=== PATIENT | female | born 1945 | race Caucasian/White ===

== ENCOUNTER 2018-10-02 13:06 | Day surgery (SDC) | payer MEDICARE, OTHER ==
[~2018-10-02] VITALS: Ht 165.1 cm; Wt 72.6 kg
--- NOTE | 2018-10-02 13:13 | ED Chest Pain ---
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 Episodes are short. The 2 last PM woke her from her sleep. Todays' occurred while @ rest. Is chest pain free here. Has noted some BARRETT today. No known fever. No N/V, or diaphoresis. 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 ), shortness of breath (c/ exertion today) Allergies and Home Medications Allergies Coded Allergies: No Known Drug Allergies (Unverified , 10/02/18) Patient Home Medication List Home Medication List Reviewed: Yes Review of Systems Review of Systems Constitutional: see HPI Respiratory: See HPI, SOA With Exertion Cardiovascular: See HPI, Chest Pain (episodic) Physical Exam Vital Signs Vital Signs - First Documented 10/02/18 13:14 Temp 97.1 Pulse 56 Resp 21 B/P (MAP) 157/67 (97) Pulse Ox 98 Capillary Refill : Height, Weight, BMI Height: '" Weight: lbs. oz. kg; BMI Method: General Appearance: No Apparent Distress, WD/WN Respiratory: Normal Breath Sounds, No Respiratory Distress Cardiovascular: Regular Rate, Rhythm Rectal: Deferred Neurologic/Psychiatric: Alert, Oriented x3, No Motor/Sensory Deficits, Normal Mood/Affect Skin: Warm/Dry Progress/Results/Core Measures Results/Orders Lab Results Laboratory Tests Test 10/02/18 13:32 Range/Units White Blood Count 6.2 4.3-11.0 10^3/uL Red Blood Count 4.38 4.35-5.85 10^6/uL Hemoglobin 13.1 11.5-16.0 G/DL Hematocrit 40 35-52 % Mean Corpuscular Volume 92 80-99 FL Mean Corpuscular Hemoglobin 30 25-34 PG Mean Corpuscular Hemoglobin Concent 30 L 32-36 G/DL Red Cell Distribution Width 13.2 10.0-14.5 % Platelet Count 214 130-400 10^3/uL Mean Platelet Volume 10.6 H 7.4-10.4 FL Neutrophils (%) (Auto) 61 42-75 % Lymphocytes (%) (Auto) 30 12-44 % Monocytes (%) (Auto) 7 0-12 % Eosinophils (%) (Auto) 2 0-10 % Basophils (%) (Auto) 1 0-10 % Neutrophils # (Auto) 3.8 1.8-7.8 X 10^3 Lymphocytes # (Auto) 1.8 1.0-4.0 X 10^3 Monocytes # (Auto) 0.4 0.0-1.0 X 10^3 Eosinophils # (Auto) 0.1 0.0-0.3 10^3/uL Basophils # (Auto) 0.1 0.0-0.1 10^3/uL Prothrombin Time 14.3 12.2-14.7 SEC INR Comment 1.1 0.8-1.4 Activated Partial Thromboplast Time 28 24-35 SEC Sodium Level 137 135-145 MMOL/L Potassium Level 4.1 3.6-5.0 MMOL/L Chloride Level 98 98-107 MMOL/L Carbon Dioxide Level 20 L 21-32 MMOL/L Anion Gap 19 H 5-14 MMOL/L Blood Urea Nitrogen 34 H 7-18 MG/DL Creatinine 1.29 0.60-1.30 MG/DL Estimat Glomerular Filtration Rate 41 BUN/Creatinine Ratio 26 Glucose Level 96 70-105 MG/DL Calcium Level 10.5 H 8.5-10.1 MG/DL Corrected Calcium 8.5-10.1 MG/DL Magnesium Level 1.8 1.8-2.4 MG/DL Total Bilirubin 0.4 0.1-1.0 MG/DL Aspartate Amino Transf (AST/SGOT) 19 5-34 U/L Alanine Aminotransferase (ALT/SGPT) 14 0-55 U/L Alkaline Phosphatase 83 40-136 U/L Troponin T 17 H <=10 NG/L Pro-B-Type Natriuretic Peptide 179.2 H <75.0 PG/ML Total Protein 7.0 6.4-8.2 GM/DL Albumin 4.6 H 3.2-4.5 GM/DL Lipase 52 8-78 U/L My Orders Orders - GREGORIA FARLEYg Tracing (10/02/18 13:07) Cbc With Automated Diff (10/02/18 13:13) Comprehensive Metabolic Panel (10/02/18 13:13) Troponin T (10/02/18 13:13) Lipase (10/02/18 13:13) Ed Iv/Invasive Line Start (10/02/18 13:13) Probnp Fs (10/02/18 13:13) Chest 1 View Ap/Pa Only (10/02/18 13:15) Magnesium (10/02/18 13:16) Protime With Inr (10/02/18 14:22) Partial Thromboplastin Time (10/02/18 14:22) Aspirin Chewable Tablet (Baby Aspirin Ch (10/02/18 14:30) Clopidogrel Tablet (Plavix Tablet) (10/02/18 14:45) Enoxaparin Injection (Lovenox Injection) (10/02/18 14:45) Medications Given in ED Current Medications Medications Dose Ordered Sig/Danish Route Start Time Stop Time Status Last Admin Dose Admin Aspirin 324 mg ONCE ONCE PO 10/02/18 14:30 10/02/18 14:51 DC 10/02/18 14:27 243 MG Vital Signs/I&O 10/02/18 13:14 Temp 97.1 Pulse 56 Resp 21 B/P (MAP) 157/67 (97) Pulse Ox 98 Progress Progress Note : Progress Note Patient has remained chest pain free the entire time she was in the ED. Discussed her abnormal findings and the need for transfer to a facility c/ Cardiology and she requested [facility]. Initial ECG Impression Date: October 02, 2018 Initial ECG Impression Time: 13:17 Initial ECG Rate: 57 Initial ECG Rhythm: S.Kt Initial ECG Impression: Nonspecific Changes (PAC; Anteroseptal infarct, ? age) Initial ECG Comparisson: No Previous ECG Available Diagnostic Imaging Diagonstic Imaging: Xray Plain Films/CT/US/NM/MRI: chest (NAD) Departure Impression Primary Impression: Chest pain Additional Impressions: Elevated troponin Elevated brain natriuretic peptide (BNP) level Disposition: 02 XFER SHT-TRM HOSP Condition: Stable Transfer Time Spoke to Accepting Phy: 14:39 Transfer Progress Notes Discussed patient initially c/ Dr. Rojas who asked the patient be admitted to the Hospitalist c/ him to consult. Spoke c/ Dr. Rooney @ 14:39 who accepted the patient in transfer. Transfer Facility: [facility] Method of Transfer: EMS GREGORIA FARLEY DO October 02, 2018 13:13
[2018-10-02 13:40] LABS: HEMATOCRIT 40 % (35-52); HEMOGLOBIN 13.1 G/DL (11.5-16.0); MEAN CORPUSCULAR HEMOGLOBIN 30 PG (25-34); MEAN CORPUSCULAR HGB CONC 30 G/DL (32-36); MEAN CORPUSCULAR VOLUME 92 FL (80-99); WHITE BLOOD COUNT 6.2 10^3/uL (4.3-11.0)
[2018-10-02 13:41] LABS: BASOPHILS # (AUTO) 0.1 10^3/uL (0.0-0.1); BASOPHILS % (AUTO) 1 % (0-10); EOSINOPHILS # (AUTO) 0.1 10^3/uL (0.0-0.3); EOSINOPHILS % (AUTO) 2 % (0-10); LYMPHOCYTES # (AUTO) 1.8 X 10^3 (1.0-4.0); LYMPHOCYTES % (AUTO) 30 % (12-44); MEAN PLATELET VOLUME 10.6 FL (7.4-10.4); MONOCYTES # (AUTO) 0.4 X 10^3 (0.0-1.0); MONOCYTES % (AUTO) 7 % (0-12); NEUTROPHILS # (AUTO) 3.8 X 10^3 (1.8-7.8); NEUTROPHILS % (AUTO) 61 % (42-75); PLATELET COUNT 214 10^3/uL (130-400); RED CELL DISTRIBUTION WIDTH 13.2 % (10.0-14.5)
--- NOTE | 2018-10-02 13:44 | Diagnostic Imaging Report ---
INDICATION: Chest pain. TIME OF EXAM: 1:22 p.m. COMPARISON: No prior studies are available for comparison. FINDINGS: The heart size is normal. The pulmonary vascularity is unremarkable. The lungs are clear. No infiltrate, effusion or pneumothorax is detected. IMPRESSION: No acute cardiopulmonary process is detected. Dictated by: Dictated on workstation # [id number]
[2018-10-02 14:11] LABS: CARBON DIOXIDE 20 MMOL/L (21-32); CHLORIDE 98 MMOL/L (98-107); POTASSIUM 4.1 MMOL/L (3.6-5.0); SODIUM 137 MMOL/L (135-145)
[2018-10-02 14:12] LABS: ALANINE AMINOTRANSFERASE 14 U/L (0-55); ALBUMIN 4.6 GM/DL (3.2-4.5); ALKALINE PHOSPHATASE 83 U/L (40-136); BILIRUBIN,TOTAL 0.4 MG/DL (0.1-1.0); BUN/CREATININE RATIO 26; CALCIUM 10.5 MG/DL (8.5-10.1); CREATININE SERUM 1.29 MG/DL (0.60-1.30); GFR ESTIMATED 41; GLUCOSE 96 MG/DL (70-105); LIPASE 52 U/L (8-78); MAGNESIUM 1.8 MG/DL (1.8-2.4)
[2018-10-02] MEDS ORDERED: ASPIRIN 81 MG CHEW (CHILDREN'S ASA) PO ONE (14:30)
[2018-10-02 14:35] LABS: INR 1.1 (0.8-1.4); PROTHROMBIN TIME PATIENT 14.3 SEC (12.2-14.7)
[2018-10-02] MEDS ORDERED: CLOPIDOGREL 300 MG (PLAVIX) TABLET PO ONE (14:45)
[2018-10-02] MEDS ORDERED: ENOXAPARIN 80 MG/0.8 ML (LOVENOX) SYR SC ONE (14:45)
--- NOTE | 2018-10-02 15:53 | NUR ---
Patient transferred to via [facility] via [facility] ems to room cu3
--- NOTE | 2018-10-02 16:41 | NUR ---
DANIEL ERICKSON admitted to room CU3-1, with an admitting diagnosis of Chest pain, on 10/02/18 from [place] via cart, accompanied by staff.DANIEL ERICKSON introduced to surroundings, call light, bed controls, phone, TV, temperature control, lights, meal times, smoking policy, visitor policy, side rail policy, bathrooms and showers. Patient Rights given to patient in the handbook. DANIEL ERICKSON verbalizes understanding that [facility] is not responsible for the loss or damage to any personal effects or valuables that are kept in the patients posession during their hospitalization. The following Patient Care Plans were discussed with the pt: Discharge Planning. DANIEL ERICKSON verbalizes understanding of Interdisciplinary Patient Education. Patient and/or family were informed about the Rapid Response Team and its purpose.
[2018-10-02 17:00] VITALS: BP 151/85
[2018-10-02] MEDS ORDERED: CATHETER FLUSH 10 ML SYR IV PRN (17:15)
--- NOTE | 2018-10-02 17:37 | Consultation-Cardiology ---
HPI-Cardiology Cardiology Consultation: Date of Consultation 10/02/18 Date of Admission Attending Physician Fam Rooney MD Admitting Physician Leonides Cotto DO Consulting Physician Benita ROJAS MD HPI: Time Seen by a Provider: 17:32 Chief Complaint: Chest pain, shortness of breath, fatigue This is a 73-year-old lady who presented to [facility] with 3 episodes of chest pain. The chest pains were sharp, substernal, no radiation, no exacerbating or relieving factors. Moderate intensity. Lasted for a few minutes. Nonreproducible. She also complained of shortness of breath very recently as well as lack of energy and fatigue. She has history of hypertension. She denies diabetes, hyperlipidemia. She denies active smoking. Review of Systems-Cardiology Review of Systems Constitutional: As described under HPI; No As described under HPI, No no symptoms reported, No chills, No fever, No lightheadedness; tiredness Eyes: No As described under HPI, No no symptoms reported, No blindness, No blurred vision, No contact lenses, No drainage, No decreased acuity, No foreign body sensation, No pain, No vision change Ears/Nose/Throat: No As described under HPI, No no symptoms reported, No chronic hearing loss, No ear discharge, No ear pain, No nasal drainage, No ulcerations Respiratory: No no symptoms reported; As described under HPI; No As described under HPI, No cough, No orthopnea; shortness of breath; No SOB with excertion Cardiovascular: No no symptoms reported; As described under HPI; No As described under HPI; chest pain; No edema, No irregular heart rate, No lightheadedness, No palpitations Gastrointestinal: No no symptoms reported, No As described under HPI, No abdomen distended, No abdominal pain, No blood streaked bowels, No constipation , No diarrhea, No nausea, No vomiting, No stool coloration changes Genitourinary: No As described under HPI, No burning, No dysuria, No discharge , No frequency, No flank pain, No hematuria, No urgency : Yes : No Skin: No rash, No skin related problems, No ulcerations Psychiatric/Neurological: No anxiety, No depression, No seizure, No focal weakness, No syncope Hematologic: No bleeding abnormalities [id number] Hx Patient Social History Alcohol Use: Denies Use Recreational Drug Use: No Smoking Status: Never a Smoker 2nd Hand Smoke Exposure: No Recent Foreign Travel: No Recent Infectious Disease Expo: No Past Medical History PMH As described under Assessment. Allergies and Home Medications Allergies Coded Allergies: No Known Drug Allergies (Unverified , 10/02/18) Patient Home Medication List Home Medication List Reviewed: Yes Physical Exam-Cardiology Physical Exam Vital Signs/I&O 10/03/18 10/03/18 10/03/18 10/03/18 01:00 04:00 07:00 07:45 Temp 97.6 Pulse 50 50 50 54 Resp 18 18 B/P (MAP) 178/80 (112) 165/86 (112) Pulse Ox 96 96 O2 Delivery Room Air Room Air 10/03/18 10/03/18 08:08 11:27 Temp 99.2 Pulse 55 Resp 20 B/P (MAP) 158/69 (98) Pulse Ox 97 O2 Delivery Room Air Room Air 10/03/18 00:00 Intake Total 400 ml Balance 400 ml Capillary Refill : Less Than 3 Seconds Constitutional: appears stated age, AAO x 3; No apparent distress; well- developed, well-nourished HEENT: PERRL; No normal ENT inspection, No TMs normal, No pharynx normal, No scleral icterus (R), No scleral icterus (L), No pale conjunctivae (R), No pale conjunctivae (L), No photophobia, No TM abnormal (R), No TM abnormal (L), No pharyngeal erythema, No tonsillar exudate, No other, No discharge, No EOMI; hearing is well preserved; No hard of hearing; oral hygience is good; No ulceration, No xanthelasmas are seen Neck: No non-tender, No full range of motion, No supple, No normal inspection, No carotid bruit, No limited range of motion, No lymphadenopathy (R), No lymphadenopathy (L), No tender lateral, No tender midline, No thyromegaly, No other; carotid pulses are 2 + bilaterally; No with good upstrokes Respiratory: No accessory muscle use, No respiratory distress, No chest tender , No chest expansion is symmetric; chest is bilaterally symmetric; No lungs clear to percussion; lungs clear to auscultation; No crackles, No rhonchi, No rales, No stridor, No wheezing, No pleural rub, No other Cardiovascular: regular rate-rhythm; No irregularly irregular, No extra beats, No parasternal heave is noted, No JVD, No edema, No bradycardia, No tachycardia , No point of maximal impulse, No cardiac thrills are palpable; S1 and S2; No gallop/S3, No gallop/S4, No diastolic murmur, No systolic murmur, No friction rub, No click, No other Gastrointestinal: No tender, No soft, No round, No distended, No pulsatile mass , No organomegaly, No guarding, No rebound, No tenderness, No hernia, No mass, No audible bowel sounds, No abnormal bowel sounds, No abdominal bruits, No spleenomegaly, No other Rectal: deferred Extremities: No normal range of motion, No non-tender, No normal inspection, No pedal edema, No calf tenderness, No normal capillary refill, No pelvis stable , No calf tenderness, No inflammation, No pedal edema, No slow capillary refill , No swelling, No other, No abrasion, No clubbing, No cyanosis, No ecchymosis, No laceration, No no lower extremity edema bilateral, No significant edema, No tenderness, No wound Neurologic/Psychiatric: no motor/sensory deficits, alert, normal mood/affect, oriented x 3, power is 5/5 both on sides Skin: No normal color, No warm/dry, No cyanosis, No cool, No diaphoresis, No damp, No ecchymosis, No jaundice, No mottled, No pallor, No rash, No tattoos/ piercings, No ulcerations, No rash on exposed areas, No ulcerations on exposed areas, No other Data Review Labs Laboratory Tests 10/02/18 13:32: White Blood Count 6.2, Red Blood Count 4.38, Hemoglobin 13.1, Hematocrit 40, Mean Corpuscular Volume 92, Mean Corpuscular Hemoglobin 30, Mean Corpuscular Hemoglobin Concent 30L, Red Cell Distribution Width 13.2, Platelet Count 214, Mean Platelet Volume 10.6H, Neutrophils (%) (Auto) 61, Lymphocytes (%) (Auto) 30 , Monocytes (%) (Auto) 7, Eosinophils (%) (Auto) 2, Basophils (%) (Auto) 1, Neutrophils # (Auto) 3.8, Lymphocytes # (Auto) 1.8, Monocytes # (Auto) 0.4, Eosinophils # (Auto) 0.1, Basophils # (Auto) 0.1, Prothrombin Time 14.3, INR Comment 1.1, Activated Partial Thromboplast Time 28, Sodium Level 137, Potassium Level 4.1, Chloride Level 98, Carbon Dioxide Level 20L, Anion Gap 19H , Blood Urea Nitrogen 34H, Creatinine 1.29, Estimat Glomerular Filtration Rate 41, BUN/Creatinine Ratio 26, Glucose Level 96, Calcium Level 10.5H, Corrected Calcium , Magnesium Level 1.8, Total Bilirubin 0.4, Aspartate Amino Transf (AST/ SGOT) 19, Alanine Aminotransferase (ALT/SGPT) 14, Alkaline Phosphatase 83, Troponin T 17H, Pro-B-Type Natriuretic Peptide 179.2H, Total Protein 7.0, Albumin 4.6H, Lipase 52 10/02/18 15:14: Troponin T 13H 10/02/18 17:57: Erythrocyte Sedimentation Rate 6, Troponin I < 0.028, C-Reactive Protein High Sensitivity 0.36, B-Type Natriuretic Peptide 93.7 10/03/18 03:09: White Blood Count 3.9L, Red Blood Count 4.13L, Hemoglobin 12.3, Hematocrit 37, Mean Corpuscular Volume 90, Mean Corpuscular Hemoglobin 30, Mean Corpuscular Hemoglobin Concent 33, Red Cell Distribution Width 13.5, Platelet Count 194, Mean Platelet Volume 10.5H, Neutrophils (%) (Auto) 43, Lymphocytes (%) (Auto) 40 , Monocytes (%) (Auto) 11, Eosinophils (%) (Auto) 5, Basophils (%) (Auto) 1, Neutrophils # (Auto) 1.7L, Lymphocytes # (Auto) 1.6, Monocytes # (Auto) 0.4, Eosinophils # (Auto) 0.2, Basophils # (Auto) 0.0, Sodium Level 138, Potassium Level 3.6, Chloride Level 109H, Carbon Dioxide Level 20L, Anion Gap 9, Blood Urea Nitrogen 24H, Creatinine 0.88, Estimat Glomerular Filtration Rate > 60, BUN /Creatinine Ratio 27, Glucose Level 78, Calcium Level 9.5, Troponin I < 0.028, Thyroid Stimulating Hormone (TSH) 4.50 ECG Impression ECG Comment Q waves in the anterior septal leads suggest possible previous infarct. A/P-Cardiology Assessment/Admission Diagnosis Recurrent chest pain, borderline positive troponin, Shortness of breath, Fatigue, Hypertension, Abnormal EKG Plan 2 sets of troponin T from [place] ER are borderline positive. We will run 2 sets of troponin I. We'll also request a BNP, CRP and ESR. Echocardiogram in the morning. It is likely that we may proceed with coronary angiography considering all the information at hand. Informed consent was taken from the patient. Shortness of breath, no florid congestive heart failure. Mildly positive pro BNP. Will recommend an echocardiogram. Fatigue, no clear evidence of etiology. Hypertension, EKG demonstrates possible Q waves in the anteroseptal leads, possible old infarct. Thank you for your consultation. Please call me if you have any questions. Jeff Rojas MD, FACP, FACC, FSCAI, FHRS, CCDS Interventional Cardiology Cardiac Electrophysiology Vascular Medicine and Endovascular Interventions Clinical Quality Measures AMI/AHF: ASA po Prior to arrival: Yes (81 mg) Benita ROJAS MD October 02, 2018 17:37
[2018-10-02 18:00] VITALS: BP 151/85
[2018-10-02] MEDS: NS IV 1000 ML 1,000 ML IV SCH (19:04)
[2018-10-03] VITALS (12 sets, daily range): BP systolic 128–178; BP diastolic 59–86
[2018-10-03 03:24] LABS: BASOPHILS % (AUTO) 1 % (0-10); EOSINOPHILS # (AUTO) 0.2 10^3/uL (0.0-0.3); EOSINOPHILS % (AUTO) 5 % (0-10); HEMATOCRIT 37 % (35-52); HEMOGLOBIN 12.3 G/DL (11.5-16.0); LYMPHOCYTES # (AUTO) 1.6 X 10^3 (1.0-4.0); LYMPHOCYTES % (AUTO) 40 % (12-44); MEAN CORPUSCULAR HEMOGLOBIN 30 PG (25-34); MEAN CORPUSCULAR HGB CONC 33 G/DL (32-36); MEAN CORPUSCULAR VOLUME 90 FL (80-99); MEAN PLATELET VOLUME 10.5 FL (7.4-10.4); MONOCYTES # (AUTO) 0.4 X 10^3 (0.0-1.0); MONOCYTES % (AUTO) 11 % (0-12); NEUTROPHILS # (AUTO) 1.7 X 10^3 (1.8-7.8); NEUTROPHILS % (AUTO) 43 % (42-75); PLATELET COUNT 194 10^3/uL (130-400); RED CELL DISTRIBUTION WIDTH 13.5 % (10.0-14.5); WHITE BLOOD COUNT 3.9 10^3/uL (4.3-11.0)
[2018-10-03 03:42] LABS: BUN/CREATININE RATIO 27; CALCIUM 9.5 MG/DL (8.5-10.1); CARBON DIOXIDE 20 MMOL/L (21-32); CHLORIDE 109 MMOL/L (98-107); CREATININE SERUM 0.88 MG/DL (0.60-1.30); GFR ESTIMATED > 60; GLUCOSE 78 MG/DL (70-105); POTASSIUM 3.6 MMOL/L (3.6-5.0); SODIUM 138 MMOL/L (135-145)
[2018-10-03] MEDS: NS IV 1000 ML 1,000 ML IV SCH (08:05)
--- NOTE | 2018-10-03 11:41 | History & Physical-Hospitalist ---
History of Present Illness HPI/Chief Complaint Patient reports she was awoken from sleep around 2 a.m. Friday morning it was sharp and stabbing and lasted 1-2 minutes. She was able to go back to sleep. She reported another episode of chest pain that made her feel weak also sharp stabbing in the center of her chest that did not radiate. This was Friday morning. After that she attempted to carry her small dog and felt quite fatigued and short of breath. She did not pass out and denied diaphoresis. Because of the associated weakness she presented to the [facility] emergency room where she had some nonspecific EKG changes and he less specific troponin but they run their was weakly positive it was repeated several hours later and unchanged. Over concerns for acute coronary syndrome she was transferred to our facility for admission cardiovascular evaluation. [place] is usually quite active. She's felt a little more fatigued over the past several months. With this she has had knee pain and read that being overweight could aggravate arthritis. She been unable to lose weight on her own over this period of time and recently started a metal fast type low carbohydrate plan and had lost 7 pounds over the last 10 days. She has no past history for cardiovascular disease and no significant risk factors for coronary artery disease other than the fact that she was once told her cholesterol level was mildly elevated but does not know any of her numbers. There is no reported family history for coronary artery disease and she does not drink or smoke. Date Seen 10/03/18 Time Seen by a Provider: 07:30 Attending Physician Fam Leung MD PCP Leonides Cotto DO Referring Physician Date of Admission October 02, 2018 at 15:04 Home Medications & Allergies Home Medications Reviewed patient Home Medication Reconciliation performed by pharmacy medication reconciliations materials technician and/or nursing. Patients Allergies have been reviewed. Allergies Allergies Coded Allergies No Known Drug Allergies (Unverified10/02/18) Past [id number]-[id number] Hx Past Med/Social Hx: Reviewed and Corrections made Patient Social History Alcohol Use: Denies Use Recreational Drug Use: No Smoking Status: Never a Smoker 2nd Hand Smoke Exposure: No Physical Abuse Screen: No Sexual Abuse: No Recent Foreign Travel: No Contact w/other who traveled: No Recent Hopitalizations: No Recent Infectious Disease Expo: No Seasonal Allergies Seasonal Allergies: No Past Medical History Surgeries: Appendectomy Cardiac: Hypertension Musculoskeletal: Arthritis Cancer: Cervical History of Blood Disorders: No Adverse Reaction to Blood Elliott: No Review of Systems Constitutional: see HPI; No chills, No diaphoresis, No dizziness, No fever, No malaise, No weakness, No weight gain, No weight loss, No other Respiratory: No no symptoms reported; see HPI; No cough; dyspnea on exertion ( Pulmonary reported yesterday); No hemoptysis, No orthopnea, No phlegm, No short of breath, No stridor, No wheezing Cardiovascular: No no symptoms reported; see HPI, chest pain; No edema, No Hx of Intervention, No palpitations, No syncope, No vascular heart diseas, No other Gastrointestinal: see HPI Physical Exam Physical Exam Vital Signs Vital Signs - First Documented 10/02/18 10/02/18 13:14 17:00 Temp 97.1 Pulse 56 Resp 21 B/P (MAP) 157/67 (97) Pulse Ox 98 O2 Delivery Room Air Capillary Refill : Less Than 3 Seconds Height, Weight, BMI Height: 5'5.00" Weight: 160lbs. 2.0oz. [id number]; 26.1 BMI Method:Stated General Appearance: No Apparent Distress, WD/WN HEENT: PERRL/EOMI, Normal ENT Inspection, Pharynx Normal, Moist Mucous Membranes Neck: Full Range of Motion, Normal Inspection, Non Tender Respiratory: Chest Non Tender, Lungs Clear, Normal Breath Sounds, No Accessory Muscle Use, No Respiratory Distress Cardiovascular: Regular Rate, Rhythm, No Edema, No Gallop, No JVD, No Murmur, Normal Peripheral Pulses Gastrointestinal: Normal Bowel Sounds, No Organomegaly, No Pulsatile Mass, Non Tender, Soft Back: Normal Inspection, No CVA Tenderness, No Vertebral Tenderness Extremity: Normal Capillary Refill, Normal Inspection, Normal Range of Motion, Non Tender, No Calf Tenderness, No Pedal Edema Neurologic/Psychiatric: Alert, Oriented x3, No Motor/Sensory Deficits, Normal Mood/Affect Lymphatic: No Adenopathy Results Results/Procedures Labs Laboratory Tests 10/02/18 13:32 10/03/18 03:09 Patient resulted labs reviewed. Assessment/Plan Admission Diagnosis A/P 1. Chest pain atypical for acute coronary syndrome with repeat troponin I levels normal on admission as well as 4 hours later will defer to cardiology continuing current medications. EKG also reveals nonspecific change. Echocardiography has been ordered and pending at the time of this dictation. Sitter reports of fatigue with an unremarkable CBC sedimentation rate and CMP will obtain a TSH level. Admission Status: Observation Clinical Quality Measures AMI/AHF: ASA po Prior to arrival: Yes (81 mg) DVT/VTE Risk/Contraindication: Risk Factor Score Per Nursin RFS Level Per Nursing on Admit: 2=Moderate FAM LEUNG MD October 03, 2018 11:41
[2018-10-03] MEDS ORDERED: HEParin (CATH LAB) 2,000 ML IV ONE (11:48)
[2018-10-03] MEDS ORDERED: LIDOCAINE 1% INJ 20 ML 20 ML VIAL ONE (11:48)
[2018-10-03] MEDS ORDERED: MIDAZOLAM 5 MG/5 ML (VERSED) VIAL ONE (12:02)
[2018-10-03] MEDS ORDERED: NS IV 1000 ML 1,000 ML ONE (12:02)
[2018-10-03] MEDS ORDERED: fentaNYL INJECTION 100 MCG/2 ML AMP ONE (12:02)
--- NOTE | 2018-10-03 12:41 | Cardiology Progress Note ---
Cardiology SOAP Progress Note Subjective: No further chest pain. Objective: I&O/Vital Signs 10/03/18 10/03/18 10/03/18 10/03/18 01:00 04:00 07:00 07:45 Temp 97.6 Pulse 50 50 50 54 Resp 18 18 B/P (MAP) 178/80 (112) 165/86 (112) Pulse Ox 96 96 O2 Delivery Room Air Room Air 10/03/18 10/03/18 08:08 11:27 Temp 99.2 Pulse 55 Resp 20 B/P (MAP) 158/69 (98) Pulse Ox 97 O2 Delivery Room Air Room Air 10/03/18 00:00 Intake Total 400 ml Balance 400 ml Weight (Pounds): 160 Weight (Ounces): 2.0 Weight (Calculated Kilograms): 72.724295 Constitutional: appears stated age, AAO x 3; No apparent distress; well- developed, well-nourished Respiratory: No accessory muscle use, No respiratory distress, No chest tender , No chest expansion is symmetric; chest is bilaterally symmetric; No lungs clear to percussion; lungs clear to auscultation; No crackles, No rhonchi, No rales, No stridor, No wheezing, No pleural rub, No other Cardiovascular: regular rate-rhythm; No irregularly irregular, No extra beats, No parasternal heave is noted, No JVD, No edema, No bradycardia, No tachycardia , No point of maximal impulse, No cardiac thrills are palpable; S1 and S2; No gallop/S3, No gallop/S4, No diastolic murmur, No systolic murmur, No friction rub, No click, No other Gastrointestional: No tender, No soft, No round, No distended, No pulsatile mass, No organomegaly, No guarding, No rebound, No tenderness, No hernia, No mass, No audible bowel sounds, No abnormal bowel sounds, No abdominal bruits, No spleenomegaly, No other Extremities: No normal range of motion, No non-tender, No normal inspection, No pedal edema, No calf tenderness, No normal capillary refill, No pelvis stable , No calf tenderness, No inflammation, No pedal edema, No slow capillary refill , No swelling, No other, No abrasion, No clubbing, No cyanosis, No ecchymosis, No laceration, No no lower extremity edema bilateral, No significant edema, No tenderness, No wound Neurologic/Psychiatric: no motor/sensory deficits, alert, normal mood/affect, oriented x 3, power is 5/5 both on sides Skin: No normal color, No warm/dry, No cyanosis, No cool, No diaphoresis, No damp, No ecchymosis, No jaundice, No mottled, No pallor, No rash, No tattoos/ piercings, No ulcerations, No rash on exposed areas, No ulcerations on exposed areas, No other Results/Procedures: Labs Laboratory Tests 10/02/18 13:32: White Blood Count 6.2, Red Blood Count 4.38, Hemoglobin 13.1, Hematocrit 40, Mean Corpuscular Volume 92, Mean Corpuscular Hemoglobin 30, Mean Corpuscular Hemoglobin Concent 30L, Red Cell Distribution Width 13.2, Platelet Count 214, Mean Platelet Volume 10.6H, Neutrophils (%) (Auto) 61, Lymphocytes (%) (Auto) 30 , Monocytes (%) (Auto) 7, Eosinophils (%) (Auto) 2, Basophils (%) (Auto) 1, Neutrophils # (Auto) 3.8, Lymphocytes # (Auto) 1.8, Monocytes # (Auto) 0.4, Eosinophils # (Auto) 0.1, Basophils # (Auto) 0.1, Prothrombin Time 14.3, INR Comment 1.1, Activated Partial Thromboplast Time 28, Sodium Level 137, Potassium Level 4.1, Chloride Level 98, Carbon Dioxide Level 20L, Anion Gap 19H , Blood Urea Nitrogen 34H, Creatinine 1.29, Estimat Glomerular Filtration Rate 41, BUN/Creatinine Ratio 26, Glucose Level 96, Calcium Level 10.5H, Corrected Calcium , Magnesium Level 1.8, Total Bilirubin 0.4, Aspartate Amino Transf (AST/ SGOT) 19, Alanine Aminotransferase (ALT/SGPT) 14, Alkaline Phosphatase 83, Troponin T 17H, Pro-B-Type Natriuretic Peptide 179.2H, Total Protein 7.0, Albumin 4.6H, Lipase 52 10/02/18 15:14: Troponin T 13H 10/02/18 17:57: Erythrocyte Sedimentation Rate 6, Troponin I < 0.028, C-Reactive Protein High Sensitivity 0.36, B-Type Natriuretic Peptide 93.7 10/03/18 03:09: White Blood Count 3.9L, Red Blood Count 4.13L, Hemoglobin 12.3, Hematocrit 37, Mean Corpuscular Volume 90, Mean Corpuscular Hemoglobin 30, Mean Corpuscular Hemoglobin Concent 33, Red Cell Distribution Width 13.5, Platelet Count 194, Mean Platelet Volume 10.5H, Neutrophils (%) (Auto) 43, Lymphocytes (%) (Auto) 40 , Monocytes (%) (Auto) 11, Eosinophils (%) (Auto) 5, Basophils (%) (Auto) 1, Neutrophils # (Auto) 1.7L, Lymphocytes # (Auto) 1.6, Monocytes # (Auto) 0.4, Eosinophils # (Auto) 0.2, Basophils # (Auto) 0.0, Sodium Level 138, Potassium Level 3.6, Chloride Level 109H, Carbon Dioxide Level 20L, Anion Gap 9, Blood Urea Nitrogen 24H, Creatinine 0.88, Estimat Glomerular Filtration Rate > 60, BUN /Creatinine Ratio 27, Glucose Level 78, Calcium Level 9.5, Troponin I < 0.028, Thyroid Stimulating Hormone (TSH) 4.50 A/P: Assessment/Dx: Recurrent chest pain, borderline positive troponin, Shortness of breath, Fatigue, Hypertension, Abnormal EKG Plan: 2 sets of troponin T from [facility] are borderline positive. Negative serial troponin. We'll also request a BNP, CRP and ESR. Echocardiogram in the morning. Coronary angiography today. Shortness of breath, no florid congestive heart failure. Mildly positive pro BNP. Will recommend an echocardiogram. Fatigue, no clear evidence of etiology. Hypertension, EKG demonstrates Q waves in the anteroseptal leads, possible old infarct. Thank you for your consultation. Please call me if you have any questions. Jeff Rojas MD, FACP, FACC, FSCAI, FHRS, CCDS Interventional Cardiology Cardiac Electrophysiology Vascular Medicine and Endovascular Interventions Clinical Quality Measures AMI/AHF: ASA po Prior to arrival: Yes (81 mg) Benita ROJAS MD October 03, 2018 12:41
[2018-10-03] MEDS ORDERED: NS IV 1000 ML 1,000 ML IV SCH (12:43)
--- NOTE | 2018-10-03 12:43 | Coronary Angiography Report ---
Coronary Angiography Report DATE OF PROCEDURE: 10/03/18 INDICATION: Recurrent chest pain, borderline positive troponin, abnormal EKG. PREOPERATIVE DIAGNOSIS: Recurrent chest pain, borderline positive troponin, abnormal EKG. POSTOPERATIVE DIAGNOSIS: Mild CAD. HISTORY: This is a 73-year-old lady who presented with sharp chest pain, shortness of breath and fatigue with possible Q waves in the anterior septal leads. Borderline positive troponin T in [facility]. Therefore, the patient was scheduled for coronary angiography. PROCEDURES PERFORMED: 1.Coronary angiography. 2.Left heart catheterization. 3. Aortic root injection; medical necessity, to evaluate ostium of the RCA. 4. Aortic arch angiogram; medical necessity, sharp chest pain in a patient with no significant CAD, rule out aortic aneurysm/dissection. 5. Abdominal aortogram and bilateral lower extremity runoff; medical necessity , resistance to the wire in the right common iliac artery. COMPLICATIONS: None. SPECIMENS: None. ESTIMATED BLOOD LOSS: 10 mL ANESTHESIA: Conscious sedation ANTICOAGULATION: None. CONTRAST: 97 mL. FLUOROSCOPY: 4.3 minutes. FLOUROSCOPY DOSE: 192 MGY. PROCEDURE DETAILS: The patient is a 73 female and was brought to the [employer] lab[facility] after informed consent was taken. All the risks and complications were explained in detail; this included the risk of bleeding, vascular damage, stroke , ID and even . The patient was draped and prepped in the usual sterile fashion. John's test was abnormal therefore access was gained in the right femoral artery with a 6 Yemeni sheath. Coronary angiography was performed with a JR4 and JL4 catheter. Aortic arch angiogram was performed with a JR4 catheter. Abdominal aortogram and bilateral lower extremity runoff was performed with a pigtail catheter. FINDINGS: 1.Left main: Patent. 2.LAD: Mild mid disease. 3.Left circumflex artery: Patent. 4.RCA: Patent. 5.Left heart catheterization: LV pressure 135/-4 mmHg. LVEDP 5 mmHg. Aortic pressure 125/53 mmHg. Normal LV function with no wall motion abnormalities. No gradient across the aortic valve. 6. Aortic root injection was done to assess the ostium of the RCA. No significant aortic root dilatation. 7. Aortic arch angiogram was done in a patient with sharp chest pain and no significant CAD. No evidence of ascending thoracic aorta aneurysm or dissection. Patent proximal segments of the great arteries including brachycephalic artery, common carotid artery and left subclavian. CONCLUSIONS: Mild CAD. Continue management of risk factors including hypertension. Jeff Rojas MD, FACP, FACC, [facility] Interventional Cardiology Benita ROJAS MD October 03, 2018 12:43
--- NOTE | 2018-10-03 12:43 | Cardiac Procedure Note-CS/ASA ---
Pre-Procedure Note Pre-Op Procedure Note H&P Reviewed The H&P was reviewed, patient examined and no changes noted. Date H&P Reviewed: October 03, 2018 Time H&P Reviewed: 11:00 Conscious Sedation Pre-Proced Time 11:00 ASA Score 3 For ASA 3 and 4: Consider anesthesia and medical clearance. Also, for patients with a history of failed moderate sedation consider anesthesia. Airway Lungs Heart ASA score ASA 1: a normal healthy patient ASA 2: a patient with a mild systemic disease (mid diabetes, controlled hypertension, obesity ASA 3: a patient with a severe systemic disease that limits activity (angina , COPD, prior Myocardial infarction) ASA 4: a patient with an incapacitating disease that is a constant threat to life (CHF, renal failure) ASA 5: a moribund patient not expected to survive 24 hrs. (ruptured aneurysm) ASA 6: a declared brain- patient whose organs are being harvested. For emergent operations, add the letter E after the classification Mallampati Classification Grade 1 Sedation Plan Analgesia, Amnesia, Plan communicated to team members, Discussed options with patient/fam, Discussed risks with patient/fam The patient is an appropriate candidate to undergo the planned procedure, sedation, and anesthesia. The patient immediately re-assessed prior to indication. Benita HINDS MD October 03, 2018 12:43
[2018-10-03] MEDS ORDERED: PATIENT MAY USE OWN MEDS, ALL PO SCH (12:45)
== END 2018-10-03 17:45 | disposition home or self-care (01) ==
LOC: ER FS 13:09 → ICU 15:04 → UNDOADMOB 15:04 → ICU 16:41 → CATH 16:41 → UNDODISOB 10-03 17:45 → CATH 10-03 17:45
PROVIDERS: ATTEND Internal Medicine
DX: I25.10 Atherosclerotic heart disease of native coronary artery without angina pectoris (principal); I10 Essential (primary) hypertension; R79.89 Other specified abnormal findings of blood chemistry; R53.83 Other fatigue; R06.02 Shortness of breath; R94.31 Abnormal electrocardiogram [ECG] [EKG]
CPT/HCPCS: 36221; 36415; 71045; 80048; 80053; 83690; 83735; 83880; 84443; 84484; 85025; 85610; 85652; 85730; 86141; 93005; 93306; 93458; 93567; 96372

== ENCOUNTER 2018-10-09 08:24 | Emergency (ER) | payer MEDICARE ==
[~2018-10-09] VITALS: Ht 165.1 cm; Wt 71.2 kg
--- NOTE | 2018-10-09 09:05 | ED General ---
General Chief Complaint: General Problems/Pain Stated Complaint: WOUND CHECK Nursing Triage Note: Pt arrived by private vehicle for chief complaint of swelling at insertion site where her heart cath was done on Friday by Dr. Rojas. On her card it stated if there is increased swelling to get it looked at. Pt stated heart cath showed that everything was normal she stated. Pt was alert, oriented and ambulatory at arrival. Pt denies pain, maybe just a little she stated. Only other past medical history is high blood pressure, cervical cancer, parital hyster and appendectomy. Nursing Sepsis Screen: No Definite Risk Source of Information: Patient History of Present Illness Date Seen by Provider: October 09, 2018 Time Seen by Provider: 09:05 Initial Comments 73 yo F presenting to the ED with complaints of right groin and upper thigh pain and bruising since heart cath a week ago. She was concerned about the amount of swelling and having a hard knot in the groin area of the bruised part where they went in for the cath. She has mild pain to it as well. She has tried applying a hot pack made with corn packed in a tube. She feels that helped some. She has no numbness or tingling to the area. She thinks it is getting bigger on her. Allergies and Home Medications Allergies Coded Allergies: No Known Drug Allergies (Unverified , 10/02/18) Home Medications No Active Prescriptions or Reported Meds Patient Home Medication List Home Medication List Reviewed: Yes Review of Systems Review of Systems Constitutional: No chills, No fever EENTM: no symptoms reported Respiratory: no symptoms reported Cardiovascular: no symptoms reported Gastrointestinal: no symptoms reported Genitourinary: no symptoms reported Musculoskeletal: see HPI Skin: see HPI Psychiatric/Neurological: No Symptoms Reported Hematologic/Lymphatic: Other (bruising to right groing and upper thigh since alvarez ving heart cath) Past Gbksvcx-Wdyeer-Ixrqmw Hx Past Med/Social Hx: Reviewed Nursing Past Med/Soc Hx Patient Social History Alcohol Use: Denies Use Recreational Drug Use: No Smoking Status: Never a Smoker 2nd Hand Smoke Exposure: No Recent Foreign Travel: No Contact w/Someone Who Travel: No Recent Infectious Disease Expo: No Recent Hopitalizations: No Physical Abuse: No Sexual Abuse: No Mistreated: No Fear: No Seasonal Allergies Seasonal Allergies: No Past Medical History Surgeries: Yes ("Partial hysterectomy") Appendectomy, Cardiac, Hysterectomy Respiratory: No Cardiac: Yes Hypertension Neurological: No CARDIAC REHAB NURSE History: Hysterectomy Genitourinary: No Musculoskeletal: Yes Arthritis Endocrine: No HEENT: No Cancer: Yes Cervical Psychosocial: No Integumentary: No Blood Disorders: No Adverse Reaction/Blood Tranf: No Physical Exam Vital Signs Vital Signs - First Documented 10/09/18 08:35 Temp 97.6 Pulse 57 Resp 20 B/P (MAP) 167/69 (101) Pulse Ox 98 O2 Delivery Room Air Capillary Refill : Less Than 3 Seconds Height, Weight, BMI Height: 5'5.00" Weight: 157lbs. 0oz. 71.703169hn; 26.1 BMI Method:Stated General Appearance: No Apparent Distress, WD/WN HEENT: Normal ENT Inspection, Pharynx Normal Respiratory: Chest Non Tender, Lungs Clear, Normal Breath Sounds Cardiovascular: Regular Rate, Rhythm, Normal Peripheral Pulses Extremity: Normal Capillary Refill, Normal Range of Motion, No Calf Tenderness, No Pedal Edema, Other (swelling and bruising to right groin with a firm knot by her inguinal area. she has palpable femoral pulse. no definite bruit or thrill for pseudoaneurysm. mild pain with palpation. bruising and swelling extends down onto her medial thigh ) Neurologic/Psychiatric: Alert, Oriented x3, No Motor/Sensory Deficits, Normal Mood/Affect, affiliate marketing manager II-XII Norm as Tested Skin: Warm/Dry, Ecchymosis (right thigh) Progress/Results/Core Measures Suspected Sepsis Recent Fever Within 48 Hours: No Infection Criteria Present: None New/Unexplained Altered Menta: No Sepsis Screen: No Definite Risk SIRS Temperature:97.6 Pulse: 57 Respiratory Rate: 20 Blood Pressure 167 /69 Mean: 101 Results/Orders My Orders Orders - BONI SALCEDO MD Us Right Low Ext [id number] (10/09/18 09:14) Vital Signs/I&O Capillary Refill : Less Than 3 Seconds Blood Pressure Mean: 101 Progress Note #1: Progress Note ultrasound of the groin/thigh to evaluate for possible pseudoaneurysm. Progress Note #2: Progress Note No pseudoaneurysm seen on ultrasound. treat symptomatically for bruise and hematoma. counseled on follow up and return precautions Diagnostic Imaging Diagonstic Imaging: Ultrasound Plain Films/CT/US/NM/MRI: leg Comments NAME: DANIEL ERICKSON [facility] REC#: [id number] PT STATUS: DEP ER : 1945 PHYSICIAN: BONI SALCEDO MD ADMIT DATE: 10/09/18/ER FS Signed Date of Exam:10/09/18 RIGHT LOW EXT [id number] INDICATION: Heart catheterization on 10/03/2018. Patient has right groin swelling. Grayscale, color-flow and duplex Doppler evaluation of the right lower extremity was performed. There is a complex fluid collection in the right groin consistent with a hematoma. This measures 4.8 x 2.0 x 5.5 cm. No internal vascularity is seen to suggest pseudoaneurysm. Predominantly biphasic waveforms in the right lower extremity arterial system is seen. Velocities are unremarkable. No high-grade stenosis or occlusion is seen. IMPRESSION: Right groin hematoma. No pseudoaneurysm is detected. Dictated by: Dictated on workstation # [id number] Dict: 10/09/18 1013 Trans: 10/09/18 1523 [facility] [id number] Interpreted by: JULIA AQUINO MD Electronically signed by: JULIA AQUINO MD 10/09/18 1523 Departure Impression Primary Impression: Traumatic hematoma of groin Qualified Codes: S30.1XXA - Contusion of abdominal wall, initial encounter Additional Impression: Postprocedural hematoma of a circulatory system organ or structure following a cardiac catheterization Disposition: 01 HOME, SELF-CARE Condition: Stable Departure-Patient Inst. Decision time for Depature: 10:59 Referrals: MARYANN CARSON DO (PCP/Family) Primary Care Physician Patient Instructions: HEMATOMA Add. Discharge Instructions: Continue with applying heat to the bruise and hematoma on your thigh and groin for 15-20 minutes every few hours as needed to help with healing and getting your body to reabsorb the hematoma. Check with clinic for continued concerns All discharge instructions reviewed with patient and/or family. Voiced understanding. Scripts No Active Prescriptions or Reported Meds BONI SALCEDO MD October 09, 2018 09:05
--- NOTE | 2018-10-09 10:25 | Diagnostic Imaging Report ---
INDICATION: Heart catheterization on 10/03/2018. Patient has right groin swelling. Grayscale, color-flow and duplex Doppler evaluation of the right lower extremity was performed. There is a complex fluid collection in the right groin consistent with a hematoma. This measures 4.8 x 2.0 x 5.5 cm. No internal vascularity is seen to suggest pseudoaneurysm. Predominantly biphasic waveforms in the right lower extremity arterial system is seen. Velocities are unremarkable. No high-grade stenosis or occlusion is seen. IMPRESSION: Right groin hematoma. No pseudoaneurysm is detected. Dictated by: Dictated on workstation # [id number]
[2018-10-09 11:06] VITALS: BP 138/76
== END 2018-10-09 11:06 | disposition home or self-care (01) ==
LOC: EDUNIT# 08:24 → ER FS 08:25
DX: I97.630 Postprocedural hematoma of a circulatory system organ or structure following a cardiac catheterization (principal); S30.1XXA Contusion of abdominal wall, initial encounter; I10 Essential (primary) hypertension; Z85.41 Personal history of malignant neoplasm of cervix uteri; Z90.711 Acquired absence of uterus with remaining cervical stump; Z90.49 Acquired absence of other specified parts of digestive tract; Z95.9 Presence of cardiac and vascular implant and graft, unspecified; X58.XXXA Exposure to other specified factors, initial encounter
CPT/HCPCS: 93926

== ENCOUNTER 2019-06-15 13:00 | Outpatient (CLI) | payer MEDICARE ==
[~2019-06-15] VITALS: Ht 165 cm; Wt 68.0 kg
[2019-06-15] MEDS ORDERED: BISO1TAB3 PO (13:02)
== END 2019-06-15 13:29 | disposition home or self-care (01) ==
LOC: PREOP 13:00
PROVIDERS: ATTEND Surgery
DX: Z01.818 Encounter for other preprocedural examination (principal)

== ENCOUNTER 2019-06-16 09:01 | Day surgery (SDC) | payer MEDICARE ==
[2019-06-16] VITALS (15 sets, daily range): BP systolic 111–187; BP diastolic 59–106
[~2019-06-16] VITALS: Ht 165 cm; Wt 68.0 kg
--- NOTE | 2019-06-16 09:37 | Progress Note-Pre Operative ---
Pre-Operative Progress Note H&P Reviewed The H&P was reviewed, patient examined and no changes noted. Date Seen by Provider: Jun 16, 2019 Time Seen by Provider: : Date H&P Reviewed: Jun 16, 2019 Time H&P Reviewed: :30 Pre-Operative Diagnosis: screening colonoscopy LISA KRISHNAN MD Jun 16, 2019 09:37
--- NOTE | 2019-06-16 09:37 | Conscious Sedation/ASA ---
Conscious Sedation Pre-Proced Time 09:30 ASA Score 2 For ASA 3 and 4: Consider anesthesia and medical clearance. Also, for patients with a history of failed moderate sedation consider anesthesia. Airway Lungs Heart ASA score ASA 1: a normal healthy patient ASA 2: a patient with a mild systemic disease (mid diabetes, controlled hypertension, obesity ASA 3: a patient with a severe systemic disease that limits activity (angina, COPD, prior Myocardial infarction) ASA 4: a patient with an incapacitating disease that is a constant threat to life (CHF, renal failure) ASA 5: a moribund patient not expected to survive 24 hrs. (ruptured aneurysm) ASA 6: a declared brain- patient whose organs are being harvested. For emergent operations, add the letter E after the classification Mallampati Classification Grade 2 Sedation Plan Analgesia, Amnesia, Plan communicated to team members, Discussed options with patient/fam, Discussed risks with patient/fam The patient is an appropriate candidate to undergo the planned procedure, sedation, and anesthesia. The patient immediately re-assessed prior to indication. LISA KRISHNAN MD Jun 16, 2019 09:37
--- NOTE | 2019-06-16 09:40 | Discharge Inst-Surgical ---
D/C Lap Instructions-ARIELLA Follow Up Activity as tolerated High Fiber Diet 25g or more per day Avoid Alcohol, Caffeine, Spicy Mitchell and Acid foods. Drink 64 fluid oz or more of fluids per day. Symptoms to Report: Fever over 101 degree F, Nausea/Vomiting If any problems/questions: Contact your physician or go to Emergency Room LISA KRISHNAN MD Jun 16, 2019 09:40
[2019-06-16] MEDS ORDERED: ACETAMINOPHEN 325 MG TABLET PO PRN (09:45)
[2019-06-16] MEDS ORDERED: HYDROcodone/APAP 5 MG/325 MG (LORTAB) TAB PO PRN (09:45)
[2019-06-16] MEDS ORDERED: morphine INJ 10 MG/ML 1ML (SYR OR VIAL) IVP PRN ×2 (09:45)
[2019-06-16] MEDS ORDERED: ONDANSETRON 4 MG/2 ML (SDV) Z0FRAN IVP PRN (09:45)
[2019-06-16] MEDS ORDERED: NS IV 500 ML 500 ML ONE (09:57)
[2019-06-16] MEDS ORDERED: NS IV 500 ML 500 ML IV PRN (10:25)
[2019-06-16] MEDS ORDERED: LIDOCAINE JELLY 2% 6 ML SYRINGE MM PRN (10:30)
[2019-06-16] MEDS ORDERED: fentaNYL INJECTION 100 MCG/2 ML AMP IVP ONE (10:30)
[2019-06-16] MEDS ORDERED: fentaNYL INJECTION 100 MCG/2 ML AMP ONE (10:32)
[2019-06-16] MEDS ORDERED: MIDAZOLAM 5 MG/5 ML (VERSED) VIAL ONE ×2 (10:32→10:38)
[2019-06-16] MEDS ORDERED: LIDOCAINE JELLY 2% 6 ML SYRINGE ONE (10:33)
[2019-06-16] MEDS: MIDAZOLAM 5 MG/5 ML (VERSED) VIAL IV PRN ×4 (10:34→11:04)
--- NOTE | 2019-06-16 12:24 | HISTORY AND PHYSICAL ---
NAME: DANIEL ERICKSON [facility] REC#: [id number] : 1945 ADMIT DATE: 06/09/19 DATE OF SERVICE: PROCEDURE DATE: 06/16/2019 ATTENDING PHYSICIAN: Dr. Cotto. HISTORY OF PRESENT ILLNESS: The patient is a 74-year-old female who was referred over to us in need of a colonoscopy. The patient reports her last colonoscopy was 5 years ago, which as far as she can remember was normal. She does report a history of polyps, which were benign. She denies any family history of any colon cancer as well as no episodes of blood in her stool. She denies any constipation, but does report that she has had occasional episodes of diarrhea. She also reports that she has had some episodes of right upper quadrant abdominal pain with radiation towards her back, especially after eating as well as some reflux. She reports that she has not had any kind of a gallbladder workup, but denied any nausea or vomiting. PAST MEDICAL HISTORY: Cervical cancer, hypertension. PAST SURGICAL HISTORY: Partial hysterectomy in 1974, appendectomy. ALLERGIES: No known drug allergies. MEDICATIONS: Bisoprolol. SOCIAL HISTORY: Negative for smoking, negative for alcohol. FAMILY HISTORY: Father, myocardial infarction in his 50s. VITAL SIGNS: Blood pressure is 118/70. Current weight is 155.2 at 5 feet 5 inches. REVIEW OF SYSTEMS: Well-nourished female, in no acute distress. She is not experiencing any shortness of breath or difficulty breathing. No chest pain, palpitations or diaphoresis. No nausea or vomiting. She does report episodes of right upper quadrant abdominal pain with radiation towards the back. She does report episodes of diarrhea, but no constipation. She also reports episodes of reflux. No red blood per rectum. No dark tarry stools. No fever or chills. No recent inadvertent weight loss. All other review of systems negative. PHYSICAL EXAMINATION: CHEST: Clear. Good breath sounds bilaterally. HEART: Regular, no murmurs. EXTREMITIES: No lower extremity edema. Negative Homans sign. HEENT: No scleral icterus. NECK: No cervical lymphadenopathy. ABDOMEN: Soft, nondistended. There is some mild tenderness with deep palpation right upper abdominal quadrant. No palpable masses. No organomegaly. No peritoneal signs. SKIN: Warm, dry and pink. NEUROLOGIC: Awake, alert and oriented x3. ASSESSMENT AND PLAN: A 74-year-old female with a history of colon polyps, who is in need of a screening colonoscopy. She also has intermittent episodes of right upper quadrant abdominal pain as well as diarrhea and reflux that may be a gallbladder etiology and would recommend proceeding with a gallbladder ultrasound and if this is negative, then a HIDA scan. At this time, we will proceed with a screening colonoscopy as well as a gallbladder ultrasound. We will then await the results of these tests. Job ID: [id number] DocumentID: [id number] Dictated Date: 06/09/2019 13:36:34 Employment Clerk Date: 06/09/2019 13:58:00 Dictated By: MIGUEL ANGEL HERNANDEZ APRN <Dictated by MIGUEL ANGEL HERNANDEZ APRN> <Electronically signed by LISA KRISHNAN MD> 06/09/19 1503 MTDD
--- NOTE | 2019-06-16 19:01 | OPERATIVE REPORT ---
DATE OF SERVICE: 06/16/2019 ATTENDING PRIMARY CARE PHYSICIAN: Leonides Cotto DO PREOPERATIVE DIAGNOSIS: Screening colonoscopy with personal history of cervical cancer. POSTOPERATIVE DIAGNOSIS: Mild chronic stage II external and internal hemorrhoids, mild scattered diverticulosis. PROCEDURE: Colonoscopy. SURGEON: Lisa Krishnan MD. ANESTHESIA: Conscious sedation. ESTIMATED BLOOD LOSS: Minimal. FINDINGS: Mild chronic stage II external and internal hemorrhoids, mild scattered diverticulosis. DISPOSITION: The patient tolerated the procedure well. INDICATIONS: The patient is a 74-year-old female in need of a screening colonoscopy. Her last colonoscopy was approximately 5 years ago and she believes this to be normal from what she can recall. She does report a history of polyps, which were biopsied and found to be benign. She does not report any family history of colon cancer; however, does have a personal history of cancer, having cervical cancer in the past. DESCRIPTION OF PROCEDURE: The patient was brought to the endoscopy suite, laid in the left lateral decubitus position. After adequate IV pain and stated medications and conscious sedation anesthesia, a digital rectal examination was performed. Mild chronic stage II external and internal hemorrhoids were identified, which were not actively edematous nor inflamed and no bleeding. Normal sphincter tone was felt and there were no palpable masses. The endoscope was then intubated to the anus and rectum gently insufflated. The endoscope was then advanced through the valves of [place] of the rectum with no polyps or any neoplasms identified. The endoscope was then advanced through the sigmoid and descending colon. There were a few scattered isolated diverticula; however, no mucosal inflammatory changes to indicate any active diverticulitis. The endoscope was then advanced to the remainder of the transverse and ascending colon to the cecum. These segments were normal. There were no polyps or any neoplasms identified. The endoscope was then slowly withdrawn while taking a second look and suctioning residual air with no additional findings. The patient tolerated the procedure well. We will recommend high fiber diet with 25 grams of fiber daily as well as significant amounts of water to promote soft stools on a daily basis. It appears that she is on a 5-year tract followup colonoscopies due to her personal history of cancer and she may continue with this trend. Job ID: [id number] DocumentID: [id number] Dictated Date: 06/16/2019 11:23:08 Master Scheduler Date: 06/16/2019 19:00:29 Dictated By: LISA KRISHNAN MD
== END 2019-06-16 12:15 | disposition home or self-care (01) ==
LOC: ENDO 09:01
PROVIDERS: ATTEND Surgery
DX: Z12.11 Encounter for screening for malignant neoplasm of colon (principal); K64.1 Second degree hemorrhoids; K64.4 Residual hemorrhoidal skin tags; K57.30 Diverticulosis of large intestine without perforation or abscess without bleeding; Z85.41 Personal history of malignant neoplasm of cervix uteri; Z90.710 Acquired absence of both cervix and uterus; Z90.89 Acquired absence of other organs; Z82.49 Family history of ischemic heart disease and other diseases of the circulatory system
CPT/HCPCS: G0121

== ENCOUNTER → 2019-06-16 | Outpatient (CLI) | payer MEDICARE ==
[~2019-06-16] MED LIST: BISO1TAB3 PO
--- NOTE | 2019-06-16 09:52 | Diagnostic Imaging Report ---
CLINICAL INDICATION: Patient right upper quadrant pain and nausea and vomiting. EXAM: Right upper quadrant ultrasound. COMPARISON: None. FINDINGS: Portion of the pancreatic head and tail are partially obscured by overlying bowel gas. The visualized portions of the pancreas is unremarkable. The liver has normal echogenicity and echotexture. The liver surface is smooth. The liver measures 16.1 cm. Main portal vein demonstrates biphasic hepatopetal flow. There is no intrahepatic or extrahepatic ductal dilation. The common bile duct measures 4 mm. The gallbladder is partially fluid-filled with no stones or mass. The gallbladder wall is within normal limits. There is no pericholecystic fluid. Right kidney is normal cortical thickening and no hydronephrosis. Right kidney measures 8.2 cm in craniocaudal dimension. Bowel gas obscures visualization of the abdominal aorta and IVC. There is no abdominal free fluid. IMPRESSION: 1. Bowel gas and patient body habitus limits evaluation of some portions of this exam. 2: There is no acute abnormality or significant abnormality involving this right upper quadrant ultrasound exam. Dictated by: Dictated on workstation # [id number]
== END ==
LOC: RAD 09:01
PROVIDERS: ATTEND Surgery
DX: R10.11 Right upper quadrant pain (principal); R11.2 Nausea with vomiting, unspecified
CPT/HCPCS: 76705

== ENCOUNTER → 2019-06-24 | Outpatient (CLI) | payer MEDICARE ==
[~2019-06-24] MED LIST changes: +CATHETER FLUSH 10 ML SYR IV PRN
--- NOTE | 2019-06-24 12:11 | Diagnostic Imaging Report ---
INDICATION: Right upper quadrant pain. TECHNIQUE: Patient was administered 5.4 mCi technetium 99m Choletec intravenously and imaging over the abdomen was performed. At 30 minutes, patient ingested 8 ounces of Ensure and gallbladder ejection fraction was calculated. Patient denied discomfort during the exam. FINDINGS: There is homogeneous uptake of activity by the liver. Prompt excretion of activity into the gallbladder and common duct is noted. There is normal passage of activity into the small bowel. Gallbladder ejection fraction is 68%. IMPRESSION: Normal HIDA scan and gallbladder ejection fraction. Dictated by: Dictated on workstation # [id number]
== END ==
LOC: CARD 09:48
PROVIDERS: ATTEND Surgery
DX: R10.11 Right upper quadrant pain (principal); R11.2 Nausea with vomiting, unspecified
CPT/HCPCS: 78227

== ENCOUNTER 2021-04-20 09:00 | Emergency (ER) | payer MEDICARE ==
[~2021-04-20] VITALS: Ht 165.1 cm; Wt 62.1 kg
[~2021-04-20 09:00] MED LIST changes: +BISO-2 PO; -BISO1TAB3 PO; -CATHETER FLUSH 10 ML SYR IV PRN
--- OUTSIDE RECORDS SUMMARY | 2021-04-20 09:04 | XMS REPORT | Clinical Summary ---
Author Author [facility] Organization [facility] Address Unknown Phone Unavailable Care Team Providers Care Solid Waste Disposal Manager Name Role Phone PCP Unavailable Allergies Not on File Medications Not on file Active Problems Not on file Social History Date Tobacco Use Types Packs/Day Years Used Never Assessed Sex Assigned at Date Recorded Not on file Last Filed Vital Signs Not on file Plan of Treatment Not on file Results Not on filefrom Last 3 Months
--- NOTE | 2021-04-20 09:48 | ED EENT ---
History of Present Illness General Chief Complaint: Eye Problems Stated Complaint: RT EYE ALTERED VISION Nursing Triage Note: PT AMBULATE TO ROOM FS02 WITH C/O RIGHT EYE DRYNESS AND "FLASHES OF LIGHT" X2-3 WEEKS. PT REPORTS SEEING A "BOX OF GIBBERISH FOR A COUPLE SECONDS" YESTERDAY IN THE RIGHT EYE AND SHE CANNOT UNDERSTAND THE LANGUAGE. PT DENIES PAIN. PT REPORTS THAT OTC EYE DROPS RELIEVE THE SYMPTOMS. PT REPORTS SPEAKING WITH HER EYE DOCTOR TODAY AND WAS TOLD TO COME TO THE ED. PT REPORTS HAVING AN APPT WITH EYE DOCTOR ON FRIDAY. Source: patient History of Present Illness Date Seen by Provider: Apr 20, 2021 Time Seen by Provider: 09:02 Initial Comments 75 yo female presenting with concern for flashing lights in the side of her vision on right eye for last 2-3 weeks. Then yesterday she was seeing a small box in the middle of her vision that seemed had "gibberish" written in it. She states that the box in the middle of her vision happened about 2-3 times yesterday and lasted for just a couple seconds. Previous to that she had been having the flashing lights like a bolt of lightening in the left side of her vision of the right eye for the last 2 to 3 weeks. That would just be an instant and go away. It did seem to improve when she would use her eyedrops. She thought it might be related to dry eyes. She has glasses that she wears. She does not wear contacts. She denies any pain to her eyes but does have a dry itchy sensation to the right eye. She denies any drainage or redness. She has had no issues with the left eye. She states she called her eye doctor, Dr. John perez, today and he advised her to come be seen emergently to make sure that her retina looked okay. He has an appointment with her Friday as he is out of the office for the holiday . She denies any issues with her vision today. Timing/Duration: abrupt Severity: mild Location: eye (R) Prearrival Treatment: over the counter meds (artificial tears) Associated Symptoms: No change in hearing, No cough, No drooling, No ear drainage, No facial pain/swelling, No fever, No malaise, No nasal congestion/drainage, No poor fluid intake, No poor solids intake, No sinus infection, No sore throat, No tooth pain, No voice change Allergies and Home Medications Allergies Coded Allergies: No Known Drug Allergies (Unverified , 06/15/19) Patient Home Medication List Home Medication List Reviewed: Yes Bisoprolol Fumarate/Hctz (Bisoprolol-Hctz 5-6.25 mg Tab) 1 Each Tablet, 1 EACH PO DAILY, (Reported) Entered as Reported by: MONET QUEZADA on 06/15/19 1302 Review of Systems Review of Systems Constitutional: No chills, No dizziness, No fever Eyes: See HPI Ears: No Symptoms Reported Nose: no symptoms reported Mouth: no symptoms reported Throat: no symptoms reported Respiratory: no symptoms reported Cardiovascular: no symptoms reported Skin: no symptoms reported Neurological: Denies Headache Past Rugqflw-Seskyf-Xidaah Hx Patient Social History Tobacco Use?: No Smoking Status: Never a Smoker Smokeless Tobacco Frequency: Never a User Use of E-Cig and/or Vaping Fidel: Never a User Substance use?: No Alcohol Use?: No Pt feels they are or have been: No Seasonal Allergies Seasonal Allergies: No Past Medical History Surgeries: Yes ("Partial hysterectomy") Appendectomy, Hysterectomy Respiratory: No Cardiac: Yes (CLEAN HEART CATH) Hypertension Neurological: No PATIENT INFORMATION COORDINATOR History: Hysterectomy Sexually Transmitted Disease: No HIV/AIDS: No Genitourinary: No Gastrointestinal: No (OCCASIONALLY) Gastroesophageal Reflux Musculoskeletal: Yes Arthritis Endocrine: No HEENT: No (READING GLASSES, PARTIAL DENTURES) Loss of Vision: Denies Hearing Impairment: Denies Cancer: Yes Cervical Did You Recieve Any Treatments: Yes What Type of Treatment Did You: Surgical Intervention Psychosocial: No Integumentary: No Blood Disorders: No Adverse Reaction/Blood Tranf: No (N/A) Physical Exam Vital Signs Vital Signs - First Documented 04/20/21 09:08 Temp 36.7 Pulse 50 Resp 17 B/P (MAP) 168/78 (108) O2 Delivery Room Air Height, Weight, BMI Height: 5'5.00" Weight: 157lbs. 0oz. 71.443942bk; 22.00 BMI Method:Stated General Appearance: WD/WN, no apparent distress Eyes: bilateral eye PERRL, bilateral eye EOMI, bilateral eye other (using direct ophthalmoscope, no a-v nicking, retinal hemorrhage. optic disc appeared to have sharp borders bilaterally) Cardiovascular: normal peripheral pulses Neurologic/Psychiatric: hearings reporter II-XII nml as tested, alert, oriented x 3 Skin: normal color, warm/dry Progress/Results/Core Measures Results/Orders Vital Signs/I&O 04/20/21 09:08 Temp 36.7 Pulse 50 Resp 17 B/P (MAP) 168/78 (108) O2 Delivery Room Air Blood Pressure Mean: 108 Progress Progress Note : Progress Note Unfortunately the slit-lamp was not available to perform the exam so the direct ophthalmoscope was used instead. Using the direct ophthalmoscope no obvious re tinal hemorrhage or defect was visualized. Patient was having no change in vision currently. She showed no papilledema. She was advised to keep appointment on Friday with Dr. Jung. If she had worsening symptoms over the weekend given information for local eye doctor to try calling to see if they might be able to perform an exam. If she is unable to get in with the eye doctor and has emergent changes over the weekend then she certainly could return and be reevaluated here in the department. Again keep the appointment with Dr. Jung her regular eye doctor on Friday as scheduled Departure Impression Primary Impression: Flashing lights Additional Impression: Alteration in vision Disposition: 01 HOME, SELF-CARE Condition: Stable Departure-Patient Inst. Decision time for Depature: 09:44 Referrals: MARYANN CARSON DO (PCP/Family) Primary Care Physician Ophthalmmologist Patient Instructions: Dry Eye, Floaters in the Eye Add. Discharge Instructions: Continue to use the eye drops to keep your eyes from being dry in case that is part of the issue for you. Keep your appointment on Friday with Dr. Jung for more formal eye exam and evaluation of your retina. If you have more problems over the weekend then you could try calling Dr. Giron's office here in town and see if they were available to see you more emergently for an eye exam this weekend. His office is located at [address] [place] [address]. Phone number All discharge instructions reviewed with patient and/or family. Voiced understanding. BONI SALCEDO MD Apr 20, 2021 09:48
[2021-04-20 09:52] VITALS: BP 157/76
== END 2021-04-20 09:51 | disposition home or self-care (01) ==
LOC: EDUNIT# 09:00 → ER FS 09:01
DX: H53.9 Unspecified visual disturbance (principal); H54.7 Unspecified visual loss; I10 Essential (primary) hypertension
CPT/HCPCS: 99281